=== PATIENT | male | born 1990 | race Caucasian/White ===

== ENCOUNTER 2017-11-02 13:32 | Emergency (ER) | payer BC, OTHER ==
[2017-11-02 13:38] VITALS: BP 143/76
--- NOTE | 2017-11-02 14:03 | EDPHY ---
H & P Time Seen by Provider: 11/02/17 13:39 HPI/ROS: CHIEF COMPLAINT: Paresthesias left upper extremity HISTORY OF PRESENT ILLNESS: 26-year-old male presents to the emergency department with burning sensation and paresthesias to his left upper extremity from his left elbow distally down to his hand and finger tips. Patient denies any known trauma or injury. He states that the symptoms began yesterday. He thought that his hand was feeling a bit weak on the left side. No symptoms in the right upper extremity. No symptoms in the lower extremities. No headache. No reported trauma. No neck pain. No chest pain or difficulty breathing. No abdominal pain. No vomiting. He took Aleve without relief. 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 But again denies any known trauma or injury. REVIEW OF SYSTEMS: Constitutional: No fever, no chills. Eyes: No double or blurry vision. ENT: No sore throat. Respiratory: No cough, no shortness of breath. Cardiac: No chest pain. Gastrointestinal: No abdominal pain, vomiting or diarrhea. Genitourinary: No dysuria. Musculoskeletal: No neck or back pain. Skin: No rashes. Neurological: No headache. Past Medical/Surgical History: AC separation left shoulder Social History: Single, works at [employer] Smoking Status: Never smoked Physical Exam: General Appearance: Alert, no distress. Eyes: Pupils equal and round. Extraocular motions are all intact. ENT: Mouth: Mucous membranes moist. Respiratory: No wheezing, rhonchi, or rales, lungs are clear to auscultation. Cardiovascular: Regular rate and rhythm. Gastrointestinal: Abdomen is soft and nontender, no masses, no rebound or guarding, bowel sounds normal. Neurological: Alert and oriented x 3, cranial nerves II through XII grossly intact Skin: Warm and dry, no rashes. Musculoskeletal: Nontender to palpate along the cervical, thoracic or lumbar spine. Neck is supple. Extremities: Full range of motion and no peripheral edema. Radial, median, and ulnar nerves are all intact. Normal sensation to light touch with normal 2 point discrimination. Strong radial pulse at the left wrist. Psychiatric: Patient is oriented X 3, there is no agitation. Constitutional: Initial Vital Signs Temperature (C) 36.6 C 11/02/17 13:36 Heart Rate 72 11/02/17 13:36 Respiratory Rate 16 11/02/17 13:36 Blood Pressure 143/76 H 11/02/17 13:36 O2 Sat (%) 97 11/02/17 13:36 O2 Delivery Mode Room Air Allergies/Adverse Reactions: Sulfa (Sulfonamide Antibiotics) Allergy (Verified 11/02/17 13:36) Home Medications: Medication Instructions Recorded NK [No Known Home Meds] 11/02/17 Medical Decision Making ED Course/Re-evaluation: 26-year-old male presents to the emergency department with paresthesias in his left upper extremity. The patient has an otherwise completely normal neurologic examination. There is no weakness. The case was discussed with Dr. Corinna Damian, secondary supervising physician , who did not directly evaluate the patient but agrees with treatment and plan. Patient was placed in a Velcro wrist splint and given orthopedic referral. I encouraged anti-inflammatories. I also encouraged to minimize repetitive movements such as lupillo. He was instructed to return to the emergency department if he felt weakness, increasing pain, or if he feels worse in any way. Differential Diagnosis: Including but not limited to cervical radiculopathy, carpal tunnel syndrome, sprain, contusion, tendinitis, tenosynovitis Departure - Departure Disposition: Home, Routine, Self-Care Clinical Impression: Paresthesia and pain of left extremity Condition: Good Instructions: Paresthesia (ED) Additional Instructions: Sling for comfort and support. Ibuprofen 600 mg every 8 hr as needed for pain. Follow-up with orthopedic surgeon as discussed. Return to the emergency department if you feel any other change in symptoms such is prolonged weakness in her upper extremity, or if you feel worse in any way. Referrals: Jamarcus Ling MD [Medical Doctor] - 5-7 days, call for appt. (Orthopedic surgeon on-call) Ruth Ly MD [Medical Doctor] - As per Instructions (Primary care provider carbon setter)
== END 2017-11-02 14:20 | disposition home or self-care (01) ==
DX: R20.2 Paresthesia of skin (principal)
CPT/HCPCS: L3984